=== PATIENT | female | born 1965 | race Caucasian/White ===

== ENCOUNTER 2018-09-10 12:36 | Emergency (ER) | payer MEDICAID ==
[~2018-09-10] VITALS: Ht 160 cm; Wt 78.0 kg
--- NOTE | 2018-09-10 13:15 | NUR ---
PT TO ROOM FROM LOBBY VIA WHEELCHAIR
[2018-09-10] MEDS ORDERED: HYDROcodone/APAP 5/325 TABLET ONE (13:51)
[2018-09-10] MEDS ORDERED: HYDROcodone/APAP 5/325 TABLET PO ONE (14:00)
--- NOTE | 2018-09-10 15:04 | NUR ---
PT AWAITING EMT SPLINT
[2018-09-10 15:32] VITALS: BP 138/46
--- NOTE | 2018-09-10 16:04 | NUR ---
EMT AT BEDSIDE FOR SPLINT AND CRUTCH WALKING, PT TO DC WHEN DONE
== END 2018-09-10 16:24 | disposition home or self-care (01) ==
LOC: ED 13:57
DX: S93.401A Sprain of unspecified ligament of right ankle, initial encounter (principal); Z76.0 Encounter for issue of repeat prescription; W19.XXXA Unspecified fall, initial encounter; Y93.89 Activity, other specified; Y92.009 Unspecified place in unspecified non-institutional (private) residence as the place of occurrence of the external cause; Y99.8 Other external cause status
CPT/HCPCS: 99283

== ENCOUNTER 2018-12-01 07:17 | Emergency (ER) | payer MEDICAID ==
[~2018-12-01] VITALS: Ht 160 cm; Wt 74.3 kg
[2018-12-01 10:09] VITALS: BP 131/84
== END 2018-12-01 10:47 | disposition home or self-care (01) ==
LOC: ED 09:46
DX: J44.1 Chronic obstructive pulmonary disease with (acute) exacerbation (principal); F41.1 Generalized anxiety disorder; Z87.891 Personal history of nicotine dependence
CPT/HCPCS: 36415; 71045; 80048; 82040; 85025; 93005; 94640; 99284; J7512; J7620

== ENCOUNTER 2018-12-11 11:27 | Emergency (ER) | payer MEDICAID ==
[~2018-12-11] VITALS: Ht 160 cm; Wt 70.4 kg
[~2018-12-11 11:27] MED LIST: LORA-446 PO
[2018-12-11 11:29] VITALS: BP 115/71
[2018-12-11] MEDS ORDERED: OXYcodone/APAP 10/325MG TABLET ONE (11:49)
[2018-12-11] MEDS ORDERED: OXYcodone/APAP 10/325MG TABLET PO ONE (12:00)
--- NOTE | 2018-12-11 12:44 | NUR ---
Pt resting in bed, provided with oral pain medication, and ice water.
[2018-12-27] MEDS ORDERED: IPRA4AER PO (11:17)
[2018-12-27] MEDS ORDERED: NICO-487 TD (11:17)
[2019-02-10] MEDS ORDERED: CLON0.5T PO (13:39)
[2019-02-11] MEDS ORDERED: METH10OR12 PO (11:15)
[2019-02-11] MEDS ORDERED: FLUT100B IH (11:41)
[2019-02-11] MEDS ORDERED: CLON0.5T11 PO (11:43)
[2019-02-11] MEDS ORDERED: GABA300C10 PO (11:45)
[2019-02-11] MEDS ORDERED: LOSA25TA25 PO (11:46)
[2019-02-11] MEDS ORDERED: NICO-487 TD (11:48)
== END 2018-12-11 13:41 | disposition home or self-care (01) ==
LOC: ED 13:39
DX: S29.011A Strain of muscle and tendon of front wall of thorax, initial encounter (principal); S20.211A Contusion of right front wall of thorax, initial encounter; F17.200 Nicotine dependence, unspecified, uncomplicated; X50.9XXA Other and unspecified overexertion or strenuous movements or postures, initial encounter; Y93.72 Activity, wrestling; Y92.009 Unspecified place in unspecified non-institutional (private) residence as the place of occurrence of the external cause; Y99.8 Other external cause status
CPT/HCPCS: 71046; 99283

== ENCOUNTER 2018-12-25 08:11 | Inpatient (IN) | payer MEDICAID ==
[~2018-12-25] VITALS: Ht 160 cm; Wt 71.4 kg
[2018-12-27 07:20] VITALS: BP 144/96
== END 2018-12-27 14:44 | disposition home or self-care (01) | DRG 140 ==
LOC: ED 09:53 → EDIP 10:18 → 4NOR 12:03 → DCLOUNGE 12-27 14:31
PROVIDERS: ADMIT Hospitalist; ATTEND Internal Medicine
DX: J44.1 Chronic obstructive pulmonary disease with (acute) exacerbation (principal); J96.01 Acute respiratory failure with hypoxia; E87.1 Hypo-osmolality and hyponatremia; F17.210 Nicotine dependence, cigarettes, uncomplicated; F41.9 Anxiety disorder, unspecified; G47.00 Insomnia, unspecified; G89.29 Other chronic pain; I10 Essential (primary) hypertension; Z83.3 Family history of diabetes mellitus; Z90.49 Acquired absence of other specified parts of digestive tract
CPT/HCPCS: 36415; 71046; 80053; 83880; 84703; 85025; 93005; 94640; 99285; G0378; J1650; J2405; J7620; J2930; J7030; J7512

== ENCOUNTER → 2019-10-26 | Outpatient (CLI) | payer MEDICAID ==
[~2019-10-26] MED LIST changes: +CLON-364 PO; +CLON0.5T PO; +FLUT100B IH; +GABA300C10 PO; +IPRA4AER PO; +LOSA25TA25 PO; +METH10OR12 PO; +NICO-487 TD
== END | disposition home or self-care (01) ==
LOC: CVU 12:58
PROVIDERS: ATTEND Internal Medicine Cardiovascular Disease
DX: I35.0 Nonrheumatic aortic (valve) stenosis (principal); I86.8 Varicose veins of other specified sites; I10 Essential (primary) hypertension; J44.9 Chronic obstructive pulmonary disease, unspecified; I87.2 Venous insufficiency (chronic) (peripheral); F11.90 Opioid use, unspecified, uncomplicated
CPT/HCPCS: 93306; 93970

== ENCOUNTER 2019-10-31 20:53 | Emergency (ER) | payer MEDICAID ==
[~2019-10-31] VITALS: Ht 160 cm; Wt 75.0 kg
[2019-10-31 20:55] VITALS: BP 184/88
== END 2019-10-31 21:55 | disposition home or self-care (01) ==
LOC: ED 21:44
DX: S52.501A Unspecified fracture of the lower end of right radius, initial encounter for closed fracture (principal); Z76.0 Encounter for issue of repeat prescription; F17.210 Nicotine dependence, cigarettes, uncomplicated; W18.30XA Fall on same level, unspecified, initial encounter; Y93.89 Activity, other specified; Y92.009 Unspecified place in unspecified non-institutional (private) residence as the place of occurrence of the external cause; Y99.8 Other external cause status
CPT/HCPCS: 99283

== ENCOUNTER 2020-02-03 11:38 | Emergency (ER) | payer MEDICAID ==
[~2020-02-03] VITALS: Ht 160 cm; Wt 60.0 kg
--- NOTE | 2020-02-03 11:50 | NUR ---
BIB BY LIZZ FROM HOME INCREASE IN BILATERAL LOWER BACK PAIN X 2 DAYS DENIES CAUSITIVE INCIDENTS (LIFTING/TWISTING) DENIES URINARY SXS
[2020-02-03] MEDS ORDERED: OXYcodone/APAP 5/325MG TABLET ONE (11:56)
[2020-02-03] MEDS ORDERED: KETOROLAC 30 MG/1 ML ONE (11:56)
[2020-02-03] MEDS ORDERED: KETOROLAC 30 MG/1 ML IM ONE (12:00)
--- NOTE | 2020-02-03 12:27 | NUR ---
CC UA COLLECTED PIV PLACED FROM WHICH BLOOD WAS DRAWN PATIENT ABLE TO WALK TO RESTROOM WITH MINIMAL INCREASE IN PAIN
[2020-02-03 12:44] LABS: MICROSCOPIC NOT IND
[2020-02-03 12:45] LABS: BASOPHILS # (AUTO) 0.02 x10^3/uL (0-0.1); BASOPHILS % (AUTO) 0 % (0-1); EOSINOPHILS # (AUTO) 0.04 x10^3/uL (0-0.4); EOSINOPHILS % (AUTO) 1 % (1-7); LYMPHOCYTES # (AUTO) 1.62 x10^3/uL (1-3.4); LYMPHOCYTES % (AUTO) 36 % (22-44); MD NO; MEAN CORPUSCULAR HEMOGLOBIN 29.1 pg (27.0-34.8); MEAN CORPUSCULAR HGB CONC 31.9 g/dL (32.4-35.8); MEAN PLATELET VOLUME 8.4 fL (7.4-10.4); MONOCYTES # (AUTO) 0.49 x10^3/uL (0.2-0.8); MONOCYTES % (AUTO) 11 % (2-9); NEUTROPHILS % (AUTO) 51 % (42-75); PLATELET COUNT 121 x10^3/uL (130-400); RED BLOOD COUNT 4.35 x10^6/uL (3.82-5.3); RED CELL DISTRIBUTION WIDTH 14.6 % (9.6-15.2)
[2020-02-03] MEDS ORDERED: OXYcodone/APAP 5/325MG TABLET PO ONE (13:00)
[2020-02-03 13:01] LABS: ALANINE AMINOTRANSFERASE 36 U/L (12-78); ALBUMIN 3.5 g/dL (3.4-5.0); ANION GAP 6 mmol/L (5-15); CALCIUM 8.4 mg/dL (8.5-10.1); CHLORIDE 101 mmol/L (98-107)
[2020-02-03 13:04] LABS: ALKALINE PHOSPHATASE 93 U/L (45-117); BILIRUBIN,TOTAL 0.3 mg/dL (0.2-1.0); CREATININE 0.69 mg/dL (0.55-1.02); TOTAL PROTEIN 7.6 g/dL (6.4-8.2)
[2020-02-03] MEDS ORDERED: DIAZEPAM 5 MG TABLET PO ONE (13:30)
[2020-02-03] MEDS ORDERED: DIAZEPAM 5 MG TABLET ONE (13:31)
[2020-02-03 13:33] VITALS: BP 100/58
--- NOTE | 2020-02-03 13:35 | NUR ---
TASK RN: PT MEDICATED PER EMAR
--- NOTE | 2020-02-03 13:54 | NUR ---
WITH REASSESSMENT PAIN IMPROVED. NOT OVERLY MEDICATED. PROVIDED WITH TAXI VOUCHER WALKED TO LOBBY WITHOUT DIFFICULTY
== END 2020-02-03 14:08 | disposition home or self-care (01) ==
LOC: ED 13:02
DX: M54.5 Low back pain (principal); I10 Essential (primary) hypertension; J44.9 Chronic obstructive pulmonary disease, unspecified
CPT/HCPCS: 36415; 72110; 80053; 81003; 85025; 96372; 99284; J1885

== ENCOUNTER 2020-02-07 12:42 | Emergency (ER) | payer MEDICAID ==
[~2020-02-07] VITALS: Ht 160 cm; Wt 78.0 kg
--- NOTE | 2020-02-07 12:54 | NUR ---
SHAHIDA. REPORT RECEIVED FROM EMS. PT C/O HARTMAN WITH NAUSEA OFF AND ON FOR 4 DAYS. PT TAKING METHADONE FOR LEG PAIN. PT'S AOX4. RESPS EVEN AND UNLABORED. BP/SPO2 MONITORS IN PLACE. CALL LIGHT WITHIN REACH.
[2020-02-07] MEDS ORDERED: ACETAMINOPHEN 325 MG TABLET PO ONE (13:30)
[2020-02-07] MEDS ORDERED: PROMETHAZINE 25MG TABLET PO PRN (13:30)
--- NOTE | 2020-02-07 13:30 | NUR ---
PT AMB TO BR WITH STEADY GAIT. URINE CUP GIVEN.
[2020-02-07] MEDS ORDERED: PROMETHAZINE 25MG TABLET ONE (13:41)
[2020-02-07] MEDS ORDERED: ACETAMINOPHEN 325 MG TABLET ONE (13:41)
[2020-02-07 13:52] LABS: BASOPHILS % (AUTO) 0 % (0-1); EOSINOPHILS % (AUTO) 0 % (1-7); LYMPHOCYTES # (AUTO) 0.49 x10^3/uL (1-3.4); LYMPHOCYTES % (AUTO) 11 % (22-44); MD NO; MEAN CORPUSCULAR HEMOGLOBIN 28.7 pg (27.0-34.8); MEAN CORPUSCULAR HGB CONC 31.7 g/dL (32.4-35.8); MEAN PLATELET VOLUME 7.8 fL (7.4-10.4); MONOCYTES # (AUTO) 0.35 x10^3/uL (0.2-0.8); MONOCYTES % (AUTO) 8 % (2-9); NEUTROPHILS # (AUTO) 3.52 x10^3/uL (1.8-6.8); NEUTROPHILS % (AUTO) 81 % (42-75); PLATELET COUNT 134 x10^3/uL (130-400)
--- NOTE | 2020-02-07 13:54 | NUR ---
PT MEDICATED PER EMAR. PT TOLERATED WELL.
[2020-02-07 14:04] LABS: ALANINE AMINOTRANSFERASE 27 U/L (12-78); ALBUMIN 3.1 g/dL (3.4-5.0); ANION GAP 5 mmol/L (5-15); CALCIUM 8.4 mg/dL (8.5-10.1); CHLORIDE 99 mmol/L (98-107); CREATININE 0.68 mg/dL (0.55-1.02)
[2020-02-07 14:06] LABS: ALKALINE PHOSPHATASE 81 U/L (45-117); BILIRUBIN,TOTAL 0.3 mg/dL (0.2-1.0); TOTAL PROTEIN 7.2 g/dL (6.4-8.2)
[2020-02-07 14:11] LABS: MICROSCOPIC INDICATED
--- NOTE | 2020-02-07 14:55 | NUR ---
pt back to room from ct at this time.
--- NOTE | 2020-02-07 15:43 | NUR ---
pt sleeping in [facility]. resps even and unlabored. bp/spo2 monitors in place. call light within reach.
--- NOTE | 2020-02-07 16:41 | NUR ---
pt sleeping in [facility]. resps even and unlabored. bp/spo2 monitors in place. call light within reach.
[2020-02-07 17:22] VITALS: BP 115/79
--- NOTE | 2020-02-07 17:24 | NUR ---
pt sleeping in [facility]. resps even and unlabored. bp/spo2 monitors in place. call light within reach.
--- NOTE | 2020-02-07 17:44 | NUR ---
pt amb to br with one assistant kitchen manager at this time.
--- NOTE | 2020-02-07 17:52 | NUR ---
Patient given discharge instructions and they have confirmed that they understand the instructions. Patient ambulatory with steady gait. taxi voucher given at ma.
== END 2020-02-07 17:53 | disposition home or self-care (01) ==
LOC: ED 13:03
DX: R11.2 Nausea with vomiting, unspecified (principal); R51 Headache; R10.84 Generalized abdominal pain; J44.9 Chronic obstructive pulmonary disease, unspecified; I10 Essential (primary) hypertension; F17.210 Nicotine dependence, cigarettes, uncomplicated
CPT/HCPCS: 36415; 70450; 80053; 81001; 83690; 85025; 87086; 99285; 99406; Q0169

== ENCOUNTER 2020-04-13 09:27 | Emergency (ER) | payer MEDICAID ==
[~2020-04-13] VITALS: Ht 160 cm; Wt 70.0 kg
--- NOTE | 2020-04-13 10:18 | NUR ---
PT AMBULATED BACK TO ROOM FROM [facility]. PT STATES ANXIETY X3 DAYS DUE TO BEING OUT OF MEDICATIONS. PER PT PCP WAS SUPPOSED TO REFILL MEDICATIONS BUT HAS NOT. PT RESTING IN [facility], NAD NOTED AT THIS TIME, WILL CONTINUE TO MONITOR.
[2020-04-13 11:16] VITALS: BP 123/96
== END 2020-04-13 11:41 | disposition home or self-care (01) ==
LOC: ED 11:36
DX: F41.1 Generalized anxiety disorder (principal); I51.7 Cardiomegaly
CPT/HCPCS: 93005; 99283

== ENCOUNTER 2020-10-24 09:23 | Observation (INO) | payer MEDICAID ==
[~2020-10-24] VITALS: Ht 160 cm; Wt 79.0 kg
[~2020-10-24 09:23] MED LIST changes: -NICO-487 TD; +NICO-587 TD
--- NOTE | 2020-10-24 09:24 | NUR ---
ERPA AT BEDSIDE FOR EVALUATION.
--- NOTE | 2020-10-24 09:34 | NUR ---
PATIENT BIB EMS WITH CHIEF C/O "I CAN'T WALK." PER EMS PATIENT WAS ABLE TO AMBULATE FROM HER BED TO AMBULANCE GURNEY WITH USE OF CANE. EMS REPORTS PATIENT USED METH 2 DAYS AGO, PATIENT HAS COPD AND WEARS 4 LPM BASELINE, NOT WEARING OXYGEN WHEN EMS ARRIVED AND O2 SATS WERE IN THE LOW 80'S, EMS PUT PATIENT ON 4 LPM AND O2 SATS UP TO MID 90'S. OTHER VSS EN ROUTE, BLOOD SUGAR 184. NO OTHER INTERVENTIONS EN ROUTE. PATIENT CONNECTED TO MONITOR, VSS, TRIED TO AMBULATE PATIENT WITH ERPA, PATIENT UNABLE TO FULLY BEAR WEIGHT ON LEFT LEG, C/O PAIN, SIDE RAILS UP X2, CALL LIGHT WITHIN REACH.
[2020-10-24] MEDS ORDERED: KETOROLAC 30 MG/1 ML ONE (09:42)
[2020-10-24] MEDS ORDERED: HYDROcodone/APAP 5/325 TABLET ONE (09:42)
[2020-10-24] MEDS ORDERED: HYDROcodone/APAP 5/325 TABLET PO ONE (10:00)
[2020-10-24] MEDS ORDERED: KETOROLAC 30 MG/1 ML IM ONE (10:00)
[2020-10-24 10:12] LABS: ALBUMIN 3.6 g/dL (3.4-5.0); ANION GAP 11 mmol/L (5-15); CALCIUM 8.6 mg/dL (8.5-10.1); CHLORIDE 98 mmol/L (98-107); CREATININE 2.05 mg/dL (0.55-1.02)
--- NOTE | 2020-10-24 10:25 | NUR ---
PATIENT ASSISTED TO [facility] FOR URINE SAMPLE.
--- NOTE | 2020-10-24 10:32 | NUR ---
PATIENT ASSISTED BACK TO [facility] FROM [facility], UNABLE TO LEAVE URINE SAMPLE AT THIS TIME. ROLL UP MACHINE OPERATOR AT BEDSIDE FOR REDRAW.
[2020-10-24 11:01] LABS: BASOPHILS % (AUTO) 0 % (0-1); EOSINOPHILS % (AUTO) 0 % (1-7); LYMPHOCYTES % (AUTO) 16 % (22-44); MEAN CORPUSCULAR HEMOGLOBIN 28.5 pg (27.0-34.8); MEAN CORPUSCULAR HGB CONC 32.8 g/dL (32.4-35.8); MEAN PLATELET VOLUME 8.5 fL (7.4-10.4); MONOCYTES % (AUTO) 9 % (2-9); NEUTROPHILS % (AUTO) 75 % (42-75); PLATELET COUNT 162 x10^3/uL (130-400); RED BLOOD COUNT 4.87 x10^6/uL (3.82-5.3); RED CELL DISTRIBUTION WIDTH 16.4 % (9.6-15.2)
--- NOTE | 2020-10-24 11:05 | NUR ---
ERPA NOTIFIED THAT PATIENT UNABLE TO LEAVE URINE SAMPLE. PATIENT TO IMAGING.
--- NOTE | 2020-10-24 11:31 | NUR ---
PATIENT STILL IN MRI.
--- NOTE | 2020-10-24 12:12 | NUR ---
ERPA AT BEDSIDE TO DISCUSS POC.
[2020-10-24] MEDS ORDERED: SODIUM CHLORIDE FLUSH 10ML SYR IVF ONE (12:30)
[2020-10-24] MEDS ORDERED: SODIUM CHLORIDE FLUSH 10ML SYR IVF PRN (12:30)
[2020-10-24] MEDS ORDERED: SODIUM CHLORIDE 0.9% 1,000 ML IV ONE (12:30)
--- NOTE | 2020-10-24 12:51 | NUR ---
SOCIAL SERVICE AGENCY DIRECTOR AT BEDSIDE FOR IV INSERTION.
[2020-10-24] MEDS ORDERED: METHOCARBAMOL 500 MG TABLET PO PRN (13:00)
[2020-10-24] MEDS ORDERED: hydrALAzine 20 MG/ML, 1ML IVPush PRN (13:00)
[2020-10-24] MEDS ORDERED: ENALAPRILAT 1.25 MG/ML, 2ML IVPush PRN (13:00)
[2020-10-24] MEDS ORDERED: ONDANSETRON 2MG/ML, 2ML IVPush PRN (13:00)
[2020-10-24] MEDS ORDERED: MELATONIN 5 MG TABLET PO PRN (13:00)
[2020-10-24] MEDS ORDERED: ONDANSETRON ODT 4 MG PO PRN (13:00)
--- NOTE | 2020-10-24 13:49 | NUR ---
REPORT CALLED TO [facility] FOR TRANSFER OF PATIENT CARE.
--- NOTE | 2020-10-24 14:08 | NUR ---
PATIENT TRANSFERRED TO FLOOR IN STABLE CONDITION VIA GURNEY WITH BOILERMAKER PIPE FITTER, ALL PATIENT BELONGINGS TAKEN TO FLOOR WITH PATIENT.
[2020-10-24] MEDS ORDERED: KETOROLAC 30 MG/1 ML IM PRN (15:00)
[2020-10-24] MEDS: LOSARTAN 25MG TABLET PO SCH (15:07)
[2020-10-24] MEDS: METHADONE 10 MG TABLET PO SCH (15:07)
[2020-10-24 15:08] VITALS: BP 120/73
[2020-10-24] MEDS: DEXAMETHASONE 4 MG/ML, 1ML IVPush SCH (15:15)
[2020-10-24 18:11] LABS: MICROSCOPIC INDICATED
[2020-10-24] MEDS: NYSTATIN 500,000 UNITS/5 ML UDC PO SCH (18:22)
[2020-10-24 19:30] VITALS: BP 105/67
[2020-10-24] MEDS ORDERED: GABAPENTIN 300 MG CAPSULE PO SCH (21:00)
[2020-10-25] MEDS: NYSTATIN 500,000 UNITS/5 ML UDC PO SCH ×2 (00:03→05:34)
[2020-10-25] MEDS: DEXAMETHASONE 4 MG/ML, 1ML IVPush SCH ×2 (00:03→08:46)
[2020-10-25] MEDS: ACETAMINOPHEN 325 MG TABLET PO PRN ×2 (00:28→10:41)
[2020-10-25 00:35] VITALS: BP 110/62
[2020-10-25 07:21] VITALS: BP 143/91
[2020-10-25] MEDS: LOSARTAN 25MG TABLET PO SCH (08:46)
[2020-10-25] MEDS ORDERED: BUDESONIDE 0.5 MG/2 ML INHA INH SCH (09:00)
[2020-10-25] MEDS ORDERED: FLUTICASONE FUROATE 100MCG/INH INH SCH (09:00)
[2020-10-25] MEDS ORDERED: METHADONE PO SCH (09:00)
[2020-10-25] MEDS: METHADONE 10 MG TABLET PO SCH (09:05)
== END 2020-10-25 12:03 | disposition home or self-care (01) ==
LOC: ED 09:28 → INTOOBSV 12:27 → EDIP 12:27 → SUATTDRO 12:34 → 3N 14:07
PROVIDERS: ADMIT Family Medicine; ATTEND Hospitalist
DX: M51.16 Intervertebral disc disorders with radiculopathy, lumbar region (principal); B37.0 Candidal stomatitis; E66.9 Obesity, unspecified; F15.90 Other stimulant use, unspecified, uncomplicated; F17.210 Nicotine dependence, cigarettes, uncomplicated; Z79.899 Other long term (current) drug therapy; J44.9 Chronic obstructive pulmonary disease, unspecified; F41.1 Generalized anxiety disorder; I10 Essential (primary) hypertension; N17.9 Acute kidney failure, unspecified; G89.29 Other chronic pain; Z79.891 Long term (current) use of opiate analgesic
CPT/HCPCS: 36415; 72148; 80048; 81001; 82040; 85025; 94640; 96361; 96372; 96374; 96376; 97161; 97165; 99285; G0378; J1100; J1885; J7030; J7626